=== PATIENT | female | born 1955 | race Caucasian/White ===

== ENCOUNTER 2016-10-28 19:30 | Emergency (ER) | payer OTHER ==
[~2016-10-28] VITALS: Ht 152.4 cm; Wt 47.2 kg
[2016-10-28] MEDS ORDERED: ESTR62TA GT (20:05)
[2016-10-28] MEDS ORDERED: XANA1TAB2 PO (20:05)
[2016-10-28] MEDS ORDERED: CYMB1CAP4 PO (20:05)
[2016-10-28] MEDS ORDERED: PROA1AER INH (20:05)
[2016-10-28] MEDS ORDERED: NEUR600T PO (20:05)
[2016-10-28] MEDS ORDERED: LEVO25TA5 PO (20:05)
[2016-10-28] MEDS ORDERED: PRAV40TA2 PO (20:05)
[2016-10-28] MEDS ORDERED: BUPIVACAINE HCL 0.5% 30 ML VIAL As Ordered ONE (20:28)
[2016-10-28] MEDS ORDERED: BUPIVACAINE HCL 0.25% 10 ML VIAL SC ONE (20:30)
[2016-10-28] MEDS ORDERED: TETANUS/DIPHTHERIA TOX ADSORB ADULT 0.5ML SYR/VIAL (90714) IM ONE (21:45)
[2016-10-28 22:32] VITALS: BP 126/62
--- NOTE | 2016-10-29 08:53 | REP ---
Trauma to the 3rd digit. PRIORS: None. Unfortunately, it is the 3rd digit that is consistently superimposed on other digits except on one view. This limits the exam. However, there is no evidence of acute fracture. There are degenerative changes seen throughout the hand. Signed by Ace Wynn DO 10/29/2016 09:26 A
== END 2016-10-28 22:34 | disposition home or self-care (01) ==
LOC: M ED 20:37
DX: S61.213A Laceration without foreign body of left middle finger without damage to nail, initial encounter (principal); W23.1XXA Caught, crushed, jammed, or pinched between stationary objects, initial encounter; Y92.009 Unspecified place in unspecified non-institutional (private) residence as the place of occurrence of the external cause; Y93.89 Activity, other specified; Y99.8 Other external cause status; Z88.0 Allergy status to penicillin; Z88.2 Allergy status to sulfonamides; Z79.899 Other long term (current) drug therapy